=== PATIENT | male | born 1950 | race Caucasian/White ===

== ENCOUNTER 2017-03-23 18:34 | Inpatient (IN) | payer BC ==
[~2017-03-23] VITALS: Ht 180.3 cm; Wt 164.2 kg
[2017-03-23 18:58] LABS: HEMOGLOBIN 14.2 gm/dl (14.0-17.5); RED BLOOD COUNT 4.73 M/UL (4.20-5.50)
[2017-03-24] MEDS ORDERED: NOVOLOG100 UNIT/1 SQ (03:34)
[2017-03-24] MEDS ORDERED: NOVOLOG 10100 UNITS/ INJ (03:34)
[2017-03-24] MEDS ORDERED: LOPRESSOR50 MG PO (03:35)
[2017-03-24] MEDS ORDERED: LANTUS INS100 UTS/ML SQ (03:35)
[2017-03-24] MEDS ORDERED: BENAZEPRIL HCL40 MG PO (03:36)
[2017-03-24] MEDS ORDERED: NEURONTIN 400400 MG PO (03:37)
[2017-03-24] MEDS ORDERED: WARFARIN SODIUM3 MG PO (03:38)
[2017-03-24] MEDS ORDERED: TRICOR 145 MG145 MG PO (03:38)
[2017-03-24] MEDS ORDERED: LIPITOR TAB 2020 MG PO (03:39)
[2017-03-24] MEDS ORDERED: TRIAMTERENE PO (03:39)
[2017-03-24] MEDS ORDERED: ZAROXOLYN/DIULO5 MG PO (03:39)
[2017-03-24] MEDS ORDERED: ASPIR 8181 MG PO (03:40)
[2017-03-24] MEDS ORDERED: K-TAB ER10 MEQ PO (03:40)
[2017-03-24] MEDS ORDERED: LYRICA200 MG PO ×2 (03:41→03:42)
[2017-03-24] MEDS ORDERED: TIKOSYN250 MCG PO (03:41)
[2017-03-24] MEDS ORDERED: PAMELOR25 MG PO (03:42)
[2017-03-24 05:54] LABS: HEMOGLOBIN 14.4 gm/dl (14.0-17.5); RED BLOOD COUNT 4.9 M/UL (4.20-5.50)
[2017-03-24 05:55] LABS: WHITE BLOOD COUNT 9.7 K/UL (4.5-11.0)
[2017-03-25 06:08] LABS: ACINETOBACTER BAUMANNII Not Detected (Negative); CANDIDA ALBICANS Not Detected (Negative); CANDIDA KRUSEI Not Detected (Negative); CANDIDA TROPICALIS Not Detected (Negative); ENTEROCOCCUS Not Detected (Negative); ESCHERICHIA COLI Not Detected (Negative); HAEMOPHILUS INFLUENZAE Not Detected (Negative); KLEBSIELLA OXYTOCA Not Detected (Negative); KLEBSIELLA PNEUMONIAE Not Detected (Negative); KPC-CARBAPENEM-RESISTANCE GENE Not Detected (Negative); PROTEUS Not Detected (Negative); PSEUDOMONAS AERUGINOSA Not Detected (Negative); SERRATIA MARCESANS Not Detected (Negative); STAPHYLOCOCCUS Not Detected (Negative); STAPHYLOCOCCUS AUREUS Not Detected (Negative); STREP AGALACTIAE (GROUP B) Not Detected (Negative); STREP PYOGENES (GROUP A) Not Detected (Negative); STREPTOCOCCUS Not Detected (Negative); mecA (METHICILLIN RESIST GENE Not Detected (Negative); vanA/B (VANCOMYCIN RESIST GENE Not Detected (Negative)
[2017-03-25 06:09] LABS: ACINETOBACTER BAUMANNII Not Detected (Negative); CANDIDA ALBICANS Not Detected (Negative); ENTEROCOCCUS Not Detected (Negative); ESCHERICHIA COLI Not Detected (Negative); HAEMOPHILUS INFLUENZAE Not Detected (Negative); KLEBSIELLA OXYTOCA Not Detected (Negative); KLEBSIELLA PNEUMONIAE Not Detected (Negative); KPC-CARBAPENEM-RESISTANCE GENE Not Detected (Negative); PROTEUS Not Detected (Negative); PSEUDOMONAS AERUGINOSA Not Detected (Negative); SERRATIA MARCESANS Not Detected (Negative); STAPHYLOCOCCUS Not Detected (Negative); STAPHYLOCOCCUS AUREUS Not Detected (Negative); STREP AGALACTIAE (GROUP B) Not Detected (Negative); STREP PYOGENES (GROUP A) Not Detected (Negative); STREPTOCOCCUS Not Detected (Negative); mecA (METHICILLIN RESIST GENE Not Detected (Negative); vanA/B (VANCOMYCIN RESIST GENE Not Detected (Negative)
[2017-03-25 06:10] LABS: CANDIDA KRUSEI Not Detected (Negative); CANDIDA TROPICALIS Not Detected (Negative)
== END 2017-03-25 19:00 | disposition home or self-care (01) | DRG 683 ==
LOC: ER1 18:34 → ZEROF 23:30 → MED SURG 4 23:30
PROVIDERS: Internal Medicine; Physician Assistant; ADMIT Internal Medicine
DX: N17.9 Acute kidney failure, unspecified (principal); Z68.43 Body mass index [BMI] 50.0-59.9, adult; N18.3 Chronic kidney disease, stage 3 (moderate); I48.2 Chronic atrial fibrillation; E11.22 Type 2 diabetes mellitus with diabetic chronic kidney disease; E66.01 Morbid (severe) obesity due to excess calories; G47.33 Obstructive sleep apnea (adult) (pediatric); R53.83 Other fatigue; Z98.84 Bariatric surgery status; N28.9 Disorder of kidney and ureter, unspecified; E11.40 Type 2 diabetes mellitus with diabetic neuropathy, unspecified; Z95.0 Presence of cardiac pacemaker; Z85.46 Personal history of malignant neoplasm of prostate; Z86.14 Personal history of Methicillin resistant Staphylococcus aureus infection; Z87.01 Personal history of pneumonia (recurrent); Z90.49 Acquired absence of other specified parts of digestive tract; Z98.890 Other specified postprocedural states; Z79.4 Long term (current) use of insulin; Z79.899 Other long term (current) drug therapy; Z79.01 Long term (current) use of anticoagulants; Z79.82 Long term (current) use of aspirin; Z91.14 Patient's other noncompliance with medication regimen; E11.21 Type 2 diabetes mellitus with diabetic nephropathy; I50.9 Heart failure, unspecified
CPT/HCPCS: ECHO; 36415; 36600; 70450; 71010; 80048; 80053; 81001; 82150; 82550; 82553; 82607; 82803; 82962; 83036; 83605; 83690; 83735; 83874; 83880; 84132; 84443; 84484; 85025; 85027; 85610; 85730; 87040; 87077; 87081; 87086; 87150; 87186; 87880; 93306; 94660; 96365; 96375; 97116; 99285; J0692; J0696; J1650; J3370; J7050

== ENCOUNTER 2021-07-05 22:52 | Emergency (ER) | payer MEDICARE ==
[~2021-07-05 22:52] MED LIST: ASPIR 8181 MG PO; BENAZEPRIL HCL40 MG PO; K-TAB ER10 MEQ PO; LANTUS INS100 UTS/ML SQ; LIPITOR TAB 2020 MG PO; LOPRESSOR50 MG PO; LYRICA200 MG PO; NEURONTIN 400400 MG PO; NOVOLOG 10100 UNITS/ INJ; NOVOLOG100 UNIT/1 SQ; PAMELOR25 MG PO; TIKOSYN250 MCG PO; TRIAMTERENE PO; TRICOR 145 MG145 MG PO; WARFARIN SODIUM3 MG PO; ZAROXOLYN/DIULO5 MG PO
== END 2021-07-06 01:42 | disposition home or self-care (01) ==
LOC: ER1 22:52
DX: M25.511 Pain in right shoulder (principal); I50.9 Heart failure, unspecified; E11.9 Type 2 diabetes mellitus without complications; Z79.82 Long term (current) use of aspirin
CPT/HCPCS: 73030; 73060; 73552; 99283